=== PATIENT | male | born 1960 | race Caucasian/White ===

== ENCOUNTER 2021-10-04 11:25 | Day surgery (SDC) | payer MEDICARE, SELFPAY ==
--- NOTE | 2021-09-22 23:39 | PCM.HP.BLA ---
History and Physical History and Physical [facility] Patient Name: Bob Shankar : 1960 From:? SANTOS JONES PA-C? DATE OF SURGERY:? 10/04/2021 SCHEDULED PROCEDURE:? 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 This is a 61-year-old male who is been having complaints of left lateral hip pain due to bony prominence.? Patient had a previous cervical spine cord injury at C5-C6 with paralysis distally from football injury.? Patient states he has been having more pain with direct pressure over the hip.? He states his pain is currently 2/10 but can reach 4/10 with direct pressure.? He has had previous MRI which was consistent with calcific bursitis of the greater trochanter.? Patient was considering surgery prior to the Pandemic but due to his medical problems he did not seek care at that time.? He currently denies any chest pain, shortness of breath, fevers chills or recent infections.? We are obtaining surgical clearance from the primary care physician Dr. Marcum.? After failing conservative measures and discussing treatment options was Dr. Josh Johansen the patient does wish to proceed with excision greater trochanteric heterotopic ossification. REVIEW OF SYSTEMS: Review Of Systems: Constitutional: Denies anorexia, change in appetite, fever, difficulty sleeping, weight change. Cardiovasular: Denies chest pain, heart murmur, irregular heartbeat and peripheral vascular disease. Respiratory: Denies asthma, cough, pneumonia, sleep apnea, shortness of breath, tuberculosis and wheezing. Gastrointestinal: Denies constipation, diarrhea, heartburn, nausea, rectal itching, bloody stools and vomiting. Genitourinary: Reports incontinence. Musculoskeletal: Denies leg swelling, pain, trouble walking and weakness. Skin: Denies Raynaud's, history of shingles and tattoo. Neurological: Denies ambulatory dysfunction, dizziness, numbness/tingling and tremor. Psychiatric: Denies anxiety, depression, insomnia, mental illness and stress. Hematologic/Lymphatic: Denies anemia, bleeding/bruising tendency and past transfusion. Reviewed, no changes. PAST MEDICAL HISTORY: Advance Care Plan: Other Directive, DNR Effective Date: 05/01/2017 Past Medical History: Medical Problems: Quadripeligic - (FOOTBALL INJURY) Cancer - SKIN Arthritis, heart disease Accidents: Fracture - LT TIBIA- 06/04/13 NECK-1977 FOOT FX-BASKETBALL RT THUMB FX-BASEBALL LT [place] - A CHILD Surgical Hx: Tonsillectomy Supra Pubic Catheter - (2012) Deviated Septum, Skin Cancer Removed From Nose Anesthesia Complications: None Assistive Devices: Glasses - READING, Wheelchair Reviewed and updated. SOCIAL HISTORY: Social History: Marital: Single.Occupation: Disabled.Work Status: Disabled.Hand Dominance: Right-handed. Personal Habits:? Cigarette Use: Never Smoked Cigarettes.Smokeless Tobacco: Never Used Smokeless Tobacco.E-Cigarette Use: Never used.Alcohol: Denies use.Drug Use: Denies Use.Enjoy Exercising: Exercises 1-3 X/Week. Reviewed and updated. VITALS: Ht: 70 Wt: 185lb Wt k.916 BMI: 26.5 BP: 122/84 Pulse: 68 Resp: 14 T: 97.8 T: 36.6C Pain Level: 2 O2SatR: 98 ALLERGIES: No Known Drug Allergy? MEDICATIONS: Ultram 50 mg 1-2 by mouth q6 hour as needed pain, Tylenol Extra Strength 500 mg as needed, Aspir-81 81 mg 1 by mouth every day, Fiber Laxative 0.52 gm 1po bid, Oxybutynin Chloride ER 15 mg 1po qday, Oyster Calcium + D 500-125 MG-Unit 1po qday, Vitamin D3 11652 Unit 1po weekly, Loratadine 10 mg 1po qday, Bisacodyl Ec 5 mg 1po qday, Diazepam 5 mg/ml 1po bid, Multi Vitamin? 1po qday, Mucinex 600 mg 1po bid, Bentyl 10 mg ipo q8hrs prn, Colace 100 mg 1 by mouth twice a day, Cranberry Extract 250 mg 1po bid, Cymbalta 20 mg 1 every day, Fleet Enema? as needed, Melatonin 3 mg 1po qhs, Nyamyc [id number] Unit/GM as directed, Testosterone Cypionate 200 mg/ml as directed, Tubersol 5 Unit/0.1ML inject 0.1ml intradermally at bedtime, Potassium Chloride Maisha ER 10 Meq 1po bid, Citric Wtvu-Novwflvxcskvoo-Tjvdxdybs Carbonate? use 30ml via irrigation every evening, Lamisil AT 1 % use for rosacea, Nizoral 2 % apply every evening PRE-OP EXAM:? General appearance:NORMAL? ? ? Other: Eyes: Conjunctivae and lids: NORMAL? Pupils: ERR Ears, Nose, Mouth, and Throat: NORMAL? Other: Inspection of lips, teeth and gums: NORMAL? ?Other: Neck: Examination of neck: no masses noted. Respiratory: Assessment of respiratory effort: NORMAL? ?Other: ?Auscultation of lungs: clear to auscultation no wheezes, rhonchi or rales. Cardiovascular:? Auscultation of heart: regular rate and rhythm, no murmurs, gallops or rubs. PHYSICAL EXAMINATION: Patient does present in a wheelchair.? There is tenderness to palpation over the left lateral hip at the greater trochanteric region.? There is larger prominence in this area.? There is no erythema or signs of infection. IMAGING STUDIES: Previous x-rays were compared which shows progression of the calcific bursitis and further buildup of heterotopic calcification. MRI of the left hip is consistent with calcific trochanteric bursitis and partial gluteus medius tendon tear. IMPRESSION: 1.? Left hip calcific trochanteric bursitis with partial gluteus medius tendon tear PLAN: Dr. Josh Johansen did discuss and review with the patient all treatment options including surgical versus nonsurgical options.? Patient does wish to proceed with the above-stated procedure.? Potential risks, benefits, and complications of the procedure were discussed in detail including but not limited to , infection, nerve and blood vessel damage, persistent pain, numbness, tingling, paresthesias, blood clot, pulmonary embolism, and requirement for possible further surgery.? The patient expressed full understanding and has no further questions for the doctor.? Patient does agree to proceed with the above-stated procedure and has signed the surgery consent form. We discussed the current risks associated with COVID 19.? This does include the risk of exposure while in the hospital.? Patient was reassured local hospitals have low infection rates and are taking all necessary precautions to avoid exposure to patients.? In addition, we discussed strategies that can be used to help limit exposure including those that limit the patient's time in the hospital.? Also using strategies to limit the patient's need for continued inpatient services after being discharged from the hospital.? Patient was notified that we will need to comply with any screening or testing the hospital wishes to perform or that surgery may be delayed for any positive results. This dictation was created using voice recognition software. Phonetic and/or grammatical errors may exist. ___? I have re-examined the patient.? There are no clinical changes since date of exam. ___? See progress notes for changes. ___? Dictated on admission Date: ? ? ?Time: Signature:
--- NOTE | 2021-10-04 | HIP_PTH ---
PATIENT: JAVIER ALBERT LOC: [facility] – [place] U#:[id number] AGE/SX: 61/M ROOM: RE10/04/[address]: Dr. Josh Johansen MD : 1960 BED: DIS: 10/04/2021 SPEC #: [id number] RECD: 10/04/21 17:33 STATUS: BRITT RESagrario #: [id number] ENA: 10/04/21 00:[address]: Josh Johansen DEPT: SURGICAL PATHOLOGY RECD BY: Grabiel Salinas ENTERED: 10/05/21 09:39 SP TYPE: TOTAL HIP OTHR DR: No Primary Care Phys Tissues: Hip, NOS Procedures: Decalcification bone/plaque Surgery Specimen Level IV HEADER OPERATION: Excision greater trochanteric heterotopic ossification left hip PRE-OP DIAGNOSIS: Left hip calcific trochanteric bursitis with partial gluteus medius tendon tear TISSUE SUBMITTED: Left hip ossification MICROSCOPIC DIAGNOSIS Left hip greater trochanteric heterotopic ossification, excision: Fragments of dense fibroconnective tissue with extensive calcification and ossification. FRED:jason 10/09/2021 MICROSCOPIC DESCRIPTION Slides are reviewed. GROSS DESCRIPTION Received is one container labeled with the patient's name and designated left hip ossification. The specimen consists of seven fragments of indurated and bony tissue ranging in size from 1 to 3.5 cm. The specimen is totally submitted in one cassette. / AM:jason 10/05/2021 TC:5 CPT: 35229, 80894
[2021-10-04 11:55] VITALS: BP 225/119; PULSE 84; RESP 18; TEMP 36.8; O2SAT 100; BMI 25.7
[2021-10-04] MEDS: Lactated Ringers 1,000 ML 15 ML IV (12:25)
[2021-10-04] MEDS: Cefazolin 2 GM in 0.9% Normal Saline 100 ML IV (12:54)
--- NOTE | 2021-10-04 13:45 | OP.PCM_ITS ---
Report of Operation Date of Procedure: 10/04/21 Pre-Operative Diagnosis: Left hip trochanteric bursa heterotopic ossification Post-Operative Diagnosis: Left hip trochanteric bursa heterotopic ossification Surgery/Procedure Performed:: Excision of heterotopic ossification fragments. July 17 fragments were 3 cm x 2 cm x 1-1/2 cm and 4 cm x 4 cm x 1 cm. Description of Surgical Findings:: 2 separate vein centers were identified one superficial to the iliotibial band fascia and one deep to the iliotibial band fascia and gluteus charissa muscle. Surgeon: Josh Johansen career services manager: Nuria Hopper Type of Anesthesia: General Anesthesiologist: Tom Montoya Special Medications: 2 g Ancef Specimen's removed: 2 main centers of ossification dimensions noted above. Sent to pathology. Estimated Blood Loss (mL): 10 Fluids Replaced: 400 mL crystalloid Description of Procedure: On the date of the procedure patient did have preoperative low-dose radiation directed by the radiation oncologist here at the hospital. He was then brought to the preoperative area where he was reexamined. At this point we agreed and confirmed that the left side was the correct side. Left side was marked. Patient was brought back to the operating room where he was transferred the table in the supine position. Anesthesia assumed control of the C-spine and airway while he was on the bed and administered anesthesia there. They remained controlled the C-spine airway throughout the remainder the procedure. Once the patient was placed in supine position on the bed he was then turned to the lateral cubitus position with his left hip up. Axillary roll was placed and all bony prominences were identified well-padded. After the patient was adequately secured using the pegboard the left lower extremity was then prepped in a sterile fashion. Surgeons then scrubbed and upon reentering the room the left lower extremity was draped in a standard orthopedic fashion. Incision was marked out. Patient had a skin dimple we used this as the central portion of our incision. Timeout was called over and agreed upon the side, the site, the future performed, patient's identity and antibiotics given. Incision was taken down through skin and we quickly encountered the more superficial of the 2 main areas of ossification. Once we carefully dissected down to this we used Bovie cautery to resect and carefully shelled out this fragment which was roughly 3 cm x 2 cm x 1-1/2 cm in size based on measurements on the back table. After this was removed we could find one other small 7 mm in circumference around area of ossification which was removed. Once this was done we could see an intact fascia but again palpate deep to the fascia was the larger ossification center. The fascia was incised in line with the incision and we carefully used Bovie cautery to again shell out and remove the deep ossification center with minimal soft tissue loss. This area was 4 cm x 4 cm x 1 cm. The undersurface sitting over top of the trochanter was not adherent to the trochanter. The abductor tendons were examined and appeared to be adequately intact. There was mild gluteus charissa involvement in the deep ossification center. Once this was done the wound was copiously irrigated out normal saline, dilute Betadine lavage and chlorhexidine. Wound was then closed with #1 Vicryl runner for the fascia. #1 Vicryl [id number]-wa-scyhc's for the deep fatty layer 2-0 Vicryl for the skin and final skin closure was done with 3-0 Monocryl barbed suture. Steri-Strips were placed. Specimens were measured on the back table as noted above. Patient was then turned to the supine position transferred to [facility] and transferred the PACU for recovery in stable condition. Postop plan patient can resume normal activities. Remove dressing in 5 days. Keep incision clean and dry until all drainage is completely dry. Patient has follow-up appointment in 2 weeks in the office. Complications No intraoperative complications Admit VTE Documentation VTE Present on Admission: No VTE Mechan Device Prophylaxis: SCD's and Thigh High LINDSEY Hose VTE Pharm Prophylaxis ordered?: No Reason prophylaxis not ordered:: Procedure Not Indicated
[2021-10-04 14:05] VITALS: BP 120/75; PULSE 80; RESP 16; TEMP 36.6; O2SAT 94
[2021-10-04 14:15] VITALS: BP 139/81; PULSE 76; RESP 16; O2SAT 96
[2021-10-04 14:30] VITALS: PULSE 78; RESP 16; O2SAT 94
[2021-10-04 14:39] VITALS: BP 105/87; PULSE 61; RESP 16; TEMP 36.1; O2SAT 96
[2021-10-04 14:55] VITALS: BP 112/80; PULSE 78; RESP 16; TEMP 36.6; O2SAT 98
== END 2021-10-04 15:23 | disposition home or self-care (01) ==
LOC: SDC 11:25 → AC 11:26
PROVIDERS: Referring Provider Specialist; Visit Provider Specialist
PROC: (CPT 27062; principal; 2021-10-04 11:00)
DX: M67.854 Other specified disorders of tendon, left hip (principal); M70.62 Trochanteric bursitis, left hip; I25.2 Old myocardial infarction; Z86.73 Personal history of transient ischemic attack (TIA), and cerebral infarction without residual deficits; Z85.828 Personal history of other malignant neoplasm of skin
CPT/HCPCS: 27062; 01210; 88305; 88311; J7120; J2405

== ENCOUNTER → 2022-03-06 | Outpatient (CLI) | payer MEDICARE, SELFPAY ==
--- NOTE | 2022-03-06 08:57 | VDLE_ITS ---
Reason For Study: Swelling RIGHT LEFT CFV is compressible, spontaneous, phasic, CFV is compressible, spontaneous, phasic, competent and demonstrates normal competent, and demonstrates normal augmentation. augmentation. FV is compressible, spontaneous, phasic, FV is compressible, spontaneous, phasic, competent and demonstrates normal competent and demonstrates normal augmentation. augmentation. POP V is compressible, spontaneous, phasic, POP V is compressible, spontaneous, phasic, competent and demonstrates normal competent and demonstrates normal augmentation. augmentation. T/P Trunk is compressible. T/P Trunk is compressible. PTV is compressible. PTV is compressible. RT PerV is compressible. LT PerV is compressible. SFJ is competent and measures 0.53 x 0.62 cm. SFJ is competent and measures 0.59 x 0.54 cm. GSV proximal thigh measures 0.43 x 0.40 cm. GSV proximal thigh measures 0.26 x 0.28 cm. GSV at knee measures 0.29 x 0.33 cm. GSV at knee measures 0.33 x 0.34 cm. GSV INCOMPETENT throughout for greater than GSV INCOMPETENT throughout for greater than 0.5 seconds. 0.5 seconds. ASV proximal calf is INCOMPETENT for greater ASV proximal calf is INCOMPETENT for greater than 0.5 seconds and measures 0.29 x 0.31 cm. than 0.5 seconds and measures 0.22 x 0.22 cm. SSV at junction is competent and measures ASV mid calf is INCOMPETENT for greater than 0.13 x 0.13 cm. 0.5 seconds and measures 0.20 x 0.16 cm. Procedure GSV below knee is small in size and difficult This is a venous duplex using B-mode, color to check for competence. flow and spectral Doppler. Unable to visualize SSV. Exam performed in department. VL/Venous Duplex US - Jarrod Extrem Interpretation Summary Deep veins of the bilateral lower extremities are patent and compressible segme ntally. There is no evidence of bilateral lower extremity deep vein thrombosis. The bilateral great saphenous veins appear patent and compressible segmentally. Positive for reflux in the right great saphenous and accessory saphenous veins Positive for reflux in the left great saphenous and accessory saphenous veins Ordering Physician: Nedra Rios Performed By: Anastasia Mckinley RVT
--- NOTE | 2022-03-06 08:57 | ART_ITS ---
Reason For Study: PVD Procedure A bilateral lower extremity continuous wave Doppler with analog waveform analysis,segmental pressures,and ankle brachial indexes without exercise. Exam was performed with cold immersion. Left Segmental Pressures Left brachial= 135mmHg. Left posterior tibial artery = 148mmHg. Left dorsalis pedis artery = 142mmHg. Left digit = 114 mmHg. The left dorsalis pedis waveforms are triphasic. The left posterior tibial artery waveforms are triphasic. Right Segmental Pressures Right brachial= 144mmHg. Right posterior tibial artery = 150mmHg. Right dorsalis pedis artery = 122mmHg. Right digit = 139 mmHg. The right dorsalis pedis waveforms are triphasic. The right posterior tibial artery waveforms are triphasic. Indices The right ankle brachial index by the dorsalis pedis is 0.85. The right ankle brachial index by the posterior tibial artery is 1.04. The right digital-brachial index is 0.97. The left ankle brachial index by the dorsalis pedis is 0.99. The left ankle brachial index by the posterior tibial artery is 1.03. The left digital-brachial index is 0.79. VL/Lower Ext Art Exam w/o Exercis Interpretation Summary Right JULIETTE 1.04, normal. TBI and Doppler/PVR waveforms of the right leg normal a t rest. Right lower extremity positive for abnormal response to cold exposure Left JULIETTE 1.03, normal. TBI and Doppler/PVR waveforms of the left leg normal at rest. Left lower extremity positive for abnormal response to cold exposure Ordering Physician: Nedra Rios Performed By: Anastasia Mckinley RVT
== END | disposition home or self-care (01) ==
LOC: CVS 08:55
PROVIDERS: Referring Provider Physician Assistant; Visit Provider Physician Assistant
DX: I73.9 Peripheral vascular disease, unspecified (principal); M79.89 Other specified soft tissue disorders
CPT/HCPCS: 93923; 93970

== ENCOUNTER → 2024-06-05 | Outpatient (CLI) | payer MEDICARE, MEDICAID, SELFPAY ==
--- NOTE | 2024-06-05 11:09 | MRI_ITS ---
EXAM: Noncontrast MRI of the left shoulder. CLINICAL HISTORY: Left shoulder pain, bursitis. Biceps tenderness. Osteoarthritis. COMPARISON: None available TECHNIQUE: Multiplanar, multisequence MRI images of the left shoulder were obtained without IV contrast. FINDINGS: No acute fracture or dislocation of the left shoulder. A few subcortical cystic foci are present in the superolateral margin of the left humeral head, with some mild adjacent edema. No Hill-Sachs lesion or bony Bankart deformity is demonstrated. No significant rotator cuff muscle atrophy. Moderate degenerative change left acromioclavicular joint. Mild degenerative change left glenohumeral joint. No sizable glenohumeral joint effusion. There is a small amount of fluid signal in the subacromial/subdeltoid bursa. No left axillary mass or adenopathy. There is heterogeneous abnormal increased signal of the posterior/superior labrum. The remainder of the labrum is grossly intact. There is some heterogeneous abnormal increased signal of the otherwise intact distal subscapularis tendon. The long head of the biceps tendon appears normal in signal and location. Moderate heterogeneous patchy tendinopathy of the distal infraspinatus and supraspinatus tendons. No retracted full-thickness rotator cuff tear is demonstrated. MRI/Upper Ext Joint Only(Routine) IMPRESSION: No acute bony abnormality of the left shoulder. Mild fluid signal in the subacromial/subdeltoid bursa, suggesting mild bursitis . Mild degenerative change left glenohumeral joint. Moderate degenerative change left AC joint. No sizable glenohumeral joint effusion. Moderate patchy tendinopathy of the distal infraspinatus and supraspinatus tend ons, without retracted full-thickness rotator cuff tear. Abnormal heterogeneous signal posterior superior labrum, which could be due to labral degeneration versus labral tear. Moderate heterogeneous tendinopathy of the otherwise intact distal subscapulari s tendon. The long head of the biceps tendon is intact. Reading Location: [facility]
== END | disposition home or self-care (01) ==
LOC: MRI 11:04
PROVIDERS: Referring Provider Physician Assistant; Visit Provider Physician Assistant
DX: M19.012 Primary osteoarthritis, left shoulder (principal); M75.52 Bursitis of left shoulder; M75.32 Calcific tendinitis of left shoulder
CPT/HCPCS: 73221